=== PATIENT | female | born 1980 | race Caucasian/White ===

== ENCOUNTER 2021-12-29 16:44 | Emergency (ER) | payer MEDICAID ==
[~2021-12-29] VITALS: Ht 165.1 cm; Wt 75.0 kg
[~2021-12-29 16:44] MED LIST: PREN-88 PO
[2021-12-29 16:48] VITALS: BP 128/79
[2021-12-29 19:20] LABS: BASOPHILS % 0.9 % (0.0-2.0); EOSINOPHILS % 6.9 % (0.0-5.0); HEMOGLOBIN. 11.6 g/dL (12.0-16.0); LYMPHOCYTES % 32.7 % (20.0-50.0); MEAN CORPUSCULAR HEMOGLOBIN 26.2 pg (28.0-32.0); MEAN CORPUSCULAR VOLUME 78.7 fL (81.0-99.0); MONOCYTES % 7.9 % (2.0-8.0); NEUTROPHILS % 51.6 % (40.0-76.0); PLATELET 404 x1000/uL (130-400); RED BLOOD CELL COUNT 4.44 mill/uL (4.2-5.4); RED CELL DISTRIBUTION WIDTH 16.6 % (11.6-14.6)
[2021-12-29 19:27] LABS: CHLORIDE 107 mEq/L (98-107)
[2021-12-29 19:38] LABS: HCG SCREEN NEGATIVE
== END 2021-12-29 23:06 | disposition left against medical advice (07) ==
LOC: ER 16:44
DX: Z53.21 Procedure and treatment not carried out due to patient leaving prior to being seen by health care provider (principal)
CPT/HCPCS: 36415; 80053; 84703; 85025